=== PATIENT | female | born 1940 | race Two or more races ===

== ENCOUNTER 2017-05-02 08:10 | Outpatient (CLI) | payer OTHER ==
[~2017-05-02] VITALS: Ht 165.1 cm; Wt 53.5 kg
[~2017-05-02 08:10] MED LIST: AVAPRO300 MG; CARDURA1 MG; HYDROCHLOROTH12.5 M1; INTESTINEX680 MG; PRILOSEC OTC20 MG
== END 2017-05-02 08:30 | disposition home or self-care (01) ==
LOC: OFIC 805 08:10
DX: B34.9 Viral infection, unspecified (principal); J32.8 Other chronic sinusitis; J30.89 Other allergic rhinitis

== ENCOUNTER 2018-05-02 12:13 | Outpatient (CLI) | payer OTHER | END 2018-05-02 12:15 | disposition home or self-care (01) | LOC: MAMO-SONO 12:13 | DX: Z12.31 Encounter for screening mammogram for malignant neoplasm of breast (principal); Z87.898 Personal history of other specified conditions; N63.21 Unspecified lump in the left breast, upper outer quadrant; N60.11 Diffuse cystic mastopathy of right breast; N60.12 Diffuse cystic mastopathy of left breast ==

== ENCOUNTER 2018-05-22 11:46 | Outpatient (CLI) | payer OTHER | END 2018-05-22 12:02 | disposition home or self-care (01) | LOC: SONOGRAMA 11:46 | DX: N60.11 Diffuse cystic mastopathy of right breast (principal); N60.12 Diffuse cystic mastopathy of left breast; R92.0 Mammographic microcalcification found on diagnostic imaging of breast ==

== ENCOUNTER 2018-11-29 13:25 | Outpatient (CLI) | payer OTHER | END 2018-11-29 13:31 | disposition home or self-care (01) | LOC: SONOGRAMA 13:25 | DX: N60.11 Diffuse cystic mastopathy of right breast (principal); N60.12 Diffuse cystic mastopathy of left breast ==

== ENCOUNTER 2019-01-15 11:34 | Outpatient (CLI) | payer OTHER | END 2019-01-15 13:53 | disposition home or self-care (01) | LOC: NUCLEAR 11:34 | DX: M81.0 Age-related osteoporosis without current pathological fracture (principal) ==

== ENCOUNTER 2019-06-27 14:50 | Outpatient (CLI) | payer OTHER | END 2019-06-27 14:56 | disposition home or self-care (01) | LOC: MAMO-SONO 14:50 | DX: N60.11 Diffuse cystic mastopathy of right breast (principal); N60.12 Diffuse cystic mastopathy of left breast ==

== ENCOUNTER → 2022-04-27 | Outpatient (CLI) | payer OTHER | END | disposition home or self-care (01) | LOC: NUCLEAR 12:58 | PROVIDERS: ATTEND Surgery | DX: M85.80 Other specified disorders of bone density and structure, unspecified site (principal); Z88.6 Allergy status to analgesic agent; Z88.2 Allergy status to sulfonamides; Z88.5 Allergy status to narcotic agent ==

== ENCOUNTER 2022-07-14 16:32 | Outpatient (CLI) | payer OTHER | END 2022-07-14 16:38 | disposition home or self-care (01) | LOC: RAD 16:32 | PROVIDERS: ATTEND Internal Medicine Cardiovascular Disease | DX: M12.9 Arthropathy, unspecified (principal) ==

== ENCOUNTER 2023-03-29 14:28 | Outpatient (CLI) | payer OTHER | END 2023-03-29 14:40 | disposition home or self-care (01) | LOC: MAMO-SONO 14:28 | PROVIDERS: ATTEND Surgery | DX: N60.11 Diffuse cystic mastopathy of right breast (principal); N60.12 Diffuse cystic mastopathy of left breast; Z12.31 Encounter for screening mammogram for malignant neoplasm of breast ==

== ENCOUNTER 2024-04-04 15:19 | Outpatient (CLI) | payer OTHER | END 2024-04-04 15:26 | disposition home or self-care (01) | LOC: MAMO-SONO 15:19 | PROVIDERS: ATTEND Surgery | DX: N60.11 Diffuse cystic mastopathy of right breast (principal); N60.12 Diffuse cystic mastopathy of left breast; Z12.31 Encounter for screening mammogram for malignant neoplasm of breast ==